=== PATIENT | male | born 1985 | race Two or more races ===

== ENCOUNTER 2017-05-05 19:06 | Emergency (ER) | payer MEDICAID ==
[~2017-05-05] VITALS: Ht 167.6 cm; Wt 79.6 kg
[2017-05-05 21:35] VITALS: BP 133/74
== END 2017-05-05 21:49 | disposition home or self-care (01) ==
LOC: ER 19:06
DX: J06.9 Acute upper respiratory infection, unspecified (principal); R51 Headache
CPT/HCPCS: 71045; 99283

== ENCOUNTER 2022-10-03 07:34 | Emergency (ER) | payer MEDICAID ==
[~2022-10-03] VITALS: Ht 170.2 cm; Wt 78.0 kg
[2022-10-03 07:40] VITALS: TEMP 98.6; O2SAT 99
[2022-10-03] MEDS ORDERED: NAPR-681 MT (09:30)
[2022-10-03] MEDS ORDERED: IBUPROFEN 600MG TABLET PO ONE (09:30)
[2022-10-03 09:44] VITALS: BP 128/96; PULSE 78; RESP 14
== END 2022-10-03 09:58 | disposition home or self-care (01) ==
LOC: ER 07:34
DX: M25.562 Pain in left knee (principal); M25.561 Pain in right knee
CPT/HCPCS: 99282